=== PATIENT | male | born 1950 | race Caucasian/White ===

== ENCOUNTER 2017-05-31 13:48 | Emergency (ER) | payer MEDICARE, OTHER ==
[~2017-05-31] VITALS: Ht 190.5 cm; Wt 108.9 kg
[2017-05-31] MEDS ORDERED: TRAZODONE HCL100 MG PO (13:58)
[2017-05-31] MEDS ORDERED: CRESTOR20 MG PO (13:58)
[2017-05-31] MEDS ORDERED: VITAMIN D1000 UNI2 PO (13:58)
[2017-05-31] MEDS ORDERED: ZYRTEC10 M5 PO (13:59)
[2017-05-31] MEDS ORDERED: PRAMIPEXOLE E0.75 MG PO (13:59)
[2017-05-31] MEDS ORDERED: ACCUNEB SO1.25 MG/1 INH (14:00)
[2017-05-31] MEDS ORDERED: ASPIR 8181 MG PO (14:00)
[2017-05-31 15:16] VITALS: BP 129/68
== END 2017-05-31 15:16 | disposition home or self-care (01) ==
LOC: M.ERS 13:48
DX: S60.131A Contusion of right middle finger with damage to nail, initial encounter (principal); J44.9 Chronic obstructive pulmonary disease, unspecified; I48.91 Unspecified atrial fibrillation; X58.XXXA Exposure to other specified factors, initial encounter; Y93.89 Activity, other specified; Y92.89 Other specified places as the place of occurrence of the external cause; Y99.8 Other external cause status